=== PATIENT | female | born 1985 | race Caucasian/White ===

== ENCOUNTER → 2017-10-28 13:30 | Outpatient (CLI) | payer OTHER, SELFPAY ==
[2017-10-29 13:56] LABS: Chlamydia Trachomatis by PCR Negative (Negative); Neisserai gonorrhoeae by PCR Negative (Negative); Probe Check PASS; Sample Adequacy Control PASS; Specimen Processing Control PASS
[2017-11-01 08:05] LABS: HPV Reflexed? NOT INDICATED
== END ==
PROVIDERS: Visit Provider Obstetrics & Gynecology
DX: Z12.4 Encounter for screening for malignant neoplasm of cervix (principal); Z11.3 Encounter for screening for infections with a predominantly sexual mode of transmission
CPT/HCPCS: 87491; 87591; 88175; G0145

== ENCOUNTER → 2018-03-31 13:30 | Outpatient (CLI) | payer OTHER, SELFPAY ==
--- OUTSIDE RECORDS SUMMARY | 2018-05-27 23:01 | XMS RPT_ITS ---
:1985 Author Organization OHIP Care Team Providers Name Role Phone VASU ULRICH Admitting Unavailable VASU ULRICH Attending Unavailable VASU ULRICH Primary Care Unavailable VASU ULRICH Admitting Unavailable VASU ULRICH Attending Unavailable VASU ULRICH Primary Care Unavailable Vasu Ulrich Attending Unavailable Vasu Ulrich Referring Unavailable Vasu Ulrich Admitting Unavailable Vasu Ulrich Attending Unavailable Vasu Ulrich Referring Unavailable Vasu Ulrich Attending Unavailable Primay Care Physicia, No Primary Care Unavailable PROBLEMS PROBLEMS DATE TYPE CONDITION / CODE ATTENDING STATUS SOURCE 04/09/2018 Unknown Z36.85 - Encounter Vasu Ulrich for Community screening for Hospital Streptococcus B / Repository Z36.85(ICD-10) 11/21/2017 Unknown Z12.4 - Encounter Vasu Ulrich for screening for Community malignant neoplasm [facility] of cervix / Repository Z12.4(ICD-10) PROCEDURES PROCEDURES No Procedure Records FoundRESULTS RESULTS DISCHARGE INSTRUCTION Observed: 04/20/2018 Status: F Source: [place] 2:19 PM [facility] [place], [place] REPOSITORY [facility] Medical Records Department [address] [place] [address] Instructions for Home/Discharge Instructions 04/20/18 1417 MR#: [id number] Acct: [id number] Name: JUAN F DVELIN Rep #: [id number] : 1985 32 From: Vasu Ulrich MD PCP: Status: ADM IN Discharge Diet: No Restrictions Discharge Activity: May Shower, May Take a Tub Bath May resume sexual activity in: 4-6 weeks Additional Activity Instructions:: Nothing in the vagina for 4-6 weeks. You may return to work/school in 6 weeks. Call your doctor if you observe: Fever of 101 or Higher, Inability to urinate, Inability to have a bowel movement, Using more than one pad per hour Additional Instructions: If you experience any of the following, contact your healthcare provider. * Bleeding that soaks a pad every hour for 2 hours * Unrelieved incision or abdominal pain * Swelling, redness, discharge or bleeding from your incision or episiotomy site * Your incision begins to separate * Problems urinating (including inability to urinate or burning while urinating). * Visual changes * Severe headache * Flu-like symptoms * Pain or redness in one of both of your breasts * Pain, warmth, tenderness or swelling in your legs, especially the calf area * Frequent nausea and vomiting * Symptoms of depression or anxiety If you experience any of the following, call 911 or go to the nearest Emergency Room. * Chest pain * Problems breathing * Seizure activity * Partial or complete paralysis of a body part, slurred speech, weakness or drooping of the face, or a sudden inability to walk or hold your balance Allergies/Adverse Reactions: Allergies No Known Allergies Allergy (Verified 07/28/13 07:43) Medications to take at Discharge Vits [Prenatabs FA ] 1 tablet PO DAILY 07/28/13 Please Follow Up With: Vasu Ulrich MD - [phone] When: Call to make an appointment with your doctor in 6 weeks. Test Results: Test results from this visit will be discussed in further detail at your follow-up appointment, if applicable. 04/20/18 1419 <Electronically signed by Vasu Ulrich MD> Date Vasu Ulrich MD CC: OPERATIVE REPORT Observed: 04/20/2018 Status: F Source: NAYELI 2:17 PM [facility] [place] [place] REPOSITORY [facility] Medical Records Department [address] [place] [address] Operative Report 04/20/18 1414 MR#: [id number] Acct: [id number] Name: JUAN F DEVLIN Rep #: [id number] : 1985 32 From: Vasu Ulrich MD PCP: Status: ADM IN Location: [place] [address] Vaginal Delivery Maternal Presentation: Elective Induction Method of Induction: Pitocin, Amniotomy Amniotic Membrane Rupture Type: Artificial Amniotic Fluid Description: Clear Final GORAN: 04/26/18 Final GORAN Source: US <20 weeks Gestational age: 39 Weeks and 1 Days Date of Procedure: 04/20/18 Pre-Operative Diagnosis: IUP Post-Operative Diagnosis: IUP Surgery/ Procedure Performed: Spontaneous Vaginal Delivery Type of Anesthesia: Epidural Description of Procedure: Spontaneous vaginal delivery of a viable female infant with Apgars of 9/9 from an occiput anterior presentation with clear amniotic fluid and normal three-vessel placenta. No episiotomy or laceration. Sponge counts okay. Delivery physician: Vasu Ulrich MD. Presentation: Vertex Placental Delivery Description: Spontaneous Placenta Disposition: [facility] Cord Vessel Description: 3 Vessels Cord Entanglement: None Estimated Blood Loss: 250 cc Infant A gender: Female (1 minute): 9 (5 minute): 9 Episiotomy Description: None Laceration: None Medications given after delivery: IV Pitocin, IM [place] Complications: None 04/20/18 1417 <Electronically signed by Vasu Ulrich MD> Date Vasu Ulrich MD CC: Vasu Ulrich MD Signed CBC-COMPLETE BLOOD CNT Collected: 04/20/2018 Status: F Source: NAYELI NO DIFF 9:30 AM [facility] [place] [place] REPOSITORY TYPE CODE TESTS RESULT OUT OF RANGE REFERENCE UNITS LAB L100.1000 4.4-11.0 K/mm3 Normal WBC 10.3 LAB L100.1200 4.2-5.4 M/mm3 Low RBC 3.93 LAB L100.1300 12.0-15.0 g/dl Low HGB 11.6 LAB L100.1400 37-47 % Low HCT 34.9 LAB L100.1500 81-99 fL Normal MCV 88.8 LAB L100.1600 27.0-32.0 pg Normal MCH 29.5 LAB L100.1700 32-36 g/gl Normal MCHC 33.2 LAB L100.1810 11.6-14.6 % Normal RDW CV 13.1 LAB L100.1820 35.1-43.9 fl Normal RDW SD 41.9 LAB L100.1900 150-450 K/mm3 Normal PLT 164 LAB L100.2000 6.2-12.0 fl High MPV 12.6 Performed By: #### L100.0500 #### [facility] [address] [place], [address] TYPE AND SCREEN Collected: 04/20/2018 Status: F Source: [place] 9:30 AM [facility] [place] [place] REPOSITORY Order Comment: Reason for Type AND Screen/Red Cells: ROUTINE TYPE CODE TESTS RESULT OUT OF RANGE REFERENCE UNITS LAB B10.0800 O Normal BLOOD TYPE GEL POSITIVE LAB B100.4000 Normal Antibody NEGATIVE Screen Performed By: #### B101.7450 #### [facility] [address] [place], [address] Observed: 03/31/2018 Status: F Source: [place] CULTURE, GROUP B 1:30 PM [facility] [place] [place] STREPTOCOCCUS REPOSITORY Comments: VAGIANL/RECTAL HARI Culture Group B Beta Streptococcus is not isolated. Performed By: #### M100.1800 #### [facility] [address] [place], [address] CBC Collected: 01/27/2018 Status: F Source: HAN[place] JI 10:10 AM [facility] REPOSITORY TYPE CODE TESTS RESULT OUT OF RANGE REFERENCE UNITS LAB CBC(LOINC) CBC Result Comment: CBC-COMPLETE BLOOD COUNT LAB WBC(LOINC) 4.5 - 10.8 x 10EE3/UL WBC 9.2 LAB RBC(LOINC) 4.10 - x 10EE6/UL 5.30 RBC Low 3.78 LAB HEMOGLOBIN(LOINC 12.0 - g/dl ) 16.0 Low HEMOGLOBIN 11.4 LAB HEMATOCRIT(LOINC 34.0 - % ) 46.0 Low HEMATOCRIT 33.8 LAB MCV(LOINC) 80 - 99 fl MCV 90 LAB MCH(LOINC) 27 - 33 pg MCH 30 LAB MCHC(LOINC) 32 - 36 X10 3 MCHC 34 LAB RDW/CV(LOINC) 12.0 - % 15.6 RDW/CV 13.1 LAB PLATELET(LOINC) 150 - 450 x10EE3/UL PLATELET 161 LAB MPV(LOINC) 6.6 - 10.5 fl MPV High 10.9 Result Comment: AUTOMATED DIFFERENTIAL LAB NEUT %(LOINC) 46.0 - 76.0 % NEUT % 74.5 LAB LYMPH %(LOINC) 20.0 - 45.0 % LYMPH % Low 19.3 LAB MONOS %(LOINC) 0.0 - 10.0 % MONOS % 4.6 LAB EO %(LOINC) 0.0 - 7.0 % EO % 0.8 LAB BASO %(LOINC) 0.0 - 2.0 % BASO % 0.8 LAB Lymph #(LOINC) 0.80 - 2.80 x10EE3/U L Lymph # 1.80 LAB Neut #(LOINC) 1.50 - 7.10 x10EE3/U L Neut # 6.80 LAB [place] #(LOINC) 0.20 - 1.00 x10EE3/U L [place] # 0.40 LAB EO #(LOINC) 0.00 - 0.50 x10EE3/U L EO # 0.10 LAB Baso #(LOINC) 0.00 - 0.10 x10EE3/U L Baso # 0.10 LAB MANUAL DIFF(LOINC) MANUAL DIFF N/A LAB MORPHOLOGY(INC ) MORPHOLOGY N/A Result Comment: {CD] Performed By: #### [id number] #### [facility],[address] [place] [address] GLUCOSE CHALLENGE 50GM Collected: 01/27/2018 Status: F Source: [facility] 1 HOUR 10:10 AM [facility] REPOSITORY TYPE CODE TESTS RESULT OUT OF REFERENCE UNITS RANGE LAB GLUCOSE CHALLENGE 50GM 1 HOUR(INC) GLUCOSE CHALLENGE 50GM 1 HOUR Result Comment: GLUCOSE CHALLENGE 50 GMS 1 HOUR LAB GLUCOSE 1HR([facility]) 70 - 140 mg/dl GLUCOSE 1HR 120 Performed By: #### [id number] #### [facility],[address] [place] [address] CBC Collected: 10/28/2017 Status: F Source: [place] JI 2:30 PM [facility] REPOSITORY TYPE CODE TESTS RESULT OUT OF RANGE REFERENCE UNITS LAB CBC(LOINC) CBC Result Comment: CBC-COMPLETE BLOOD COUNT LAB WBC(LOINC) 4.5 - 10.8 x 10EE3/UL WBC 9.3 LAB RBC(LOINC) 4.10 - x 10EE6/UL 5.30 RBC 4.22 LAB HEMOGLOBIN(LOINC 12.0 - g/dl ) 16.0 HEMOGLOBIN 12.3 LAB HEMATOCRIT(LOINC 34.0 - % ) 46.0 HEMATOCRIT 36.2 LAB MCV(LOINC) 80 - 99 fl MCV 86 LAB MCH(LOINC) 27 - 33 pg MCH 29 LAB MCHC(LOINC) 32 - 36 X10 3 MCHC 34 LAB RDW/CV(LOINC) 12.0 - % 15.6 RDW/CV 14.4 LAB PLATELET(LOINC) 150 - 450 x10EE3/UL PLATELET 173 LAB MPV(LOINC) 6.6 - 10.5 fl MPV High 11.0 Result Comment: AUTOMATED DIFFERENTIAL LAB NEUT %(LOINC) 46.0 - 76.0 % NEUT % 72.4 LAB LYMPH %(LOINC) 20.0 - 45.0 % LYMPH % 21.3 LAB MONOS %(LOINC) 0.0 - 10.0 % MONOS % 4.7 LAB EO %(LOINC) 0.0 - 7.0 % EO % 1.1 LAB BASO %(LOINC) 0.0 - 2.0 % BASO % 0.5 LAB Lymph #(LOINC) 0.80 - 2.80 x10EE3/U L Lymph # 2.00 LAB Neut #(LOINC) 1.50 - 7.10 x10EE3/U L Neut # 6.70 LAB [place] #(LOINC) 0.20 - 1.00 x10EE3/U L [place] # 0.40 LAB EO #(LOINC) 0.00 - 0.50 x10EE3/U L EO # 0.10 LAB Baso #(LOINC) 0.00 - 0.10 x10EE3/U L Baso # 0.00 LAB MANUAL DIFF(LOINC) MANUAL DIFF N/A LAB MORPHOLOGY(LOINC ) MORPHOLOGY N/A Result Comment: {CD] Performed By: #### [id number] #### [place] [address] URINALYSIS Collected: 10/28/2017 Status: F Source: [facility] 2:30 PM [facility] REPOSITORY TYPE CODE TESTS RESULT OUT OF REFERENCE UNITS RANGE LAB URINALYSIS (LOINC) URINALYSIS Result Comment: URINALYSIS LAB Specimen Type(LOINC) Specimen Type Clean catch LAB Color(LOINC) NORMAL: YELLOW Color santino LAB Clarity(LOINC) NORMAL: CLEAR Clarity very cloudy LAB ph(LOINC) NORMAL: 5.0-8.0 ph 5 LAB Protein(LOINC) NORMAL: NEGATIVE Protein NEG LAB Glucose(LOINC) NORMAL: NORMAL Glucose NORM LAB Ketone(LOINC) NORMAL: NEGATIVE Ketone NEG LAB Bilirubin(LOINC) NORMAL: NEGATIVE Bilirubin NEG LAB Blood(LOINC) NORMAL: NEGATIVE Blood NEG LAB Urobilinog(LOINC) NORMAL: NORMAL Urobilinog NORM LAB Sp [place](LOINC) NORMAL: 1.010-1.030 Sp [place] 1.025 LAB Nitrite(LOINC) NORMAL: NEGATIVE Nitrite NEG LAB Leukocytes(LOINC) NORMAL: NEGATIVE Leukocytes NEG LAB Microscopic(LOINC) Microscopic SEE BELOW Result Comment: MICROSCOPIC LAB Wbc(LOINC) 0-5/hpf Wbc NONE LAB Rbc(LOINC) 0-3/hpf Rbc NONE LAB Casts(LOINC) Casts NONE LAB Crystals(LOINC) Crystals NONE LAB Amorphous(LOINC) Amorphous 3+ LAB Bacteria(LOINC) Bacteria NONE LAB Epi Cells(LOINC) Epi Cells OCC LAB Mucous(LOINC) Mucous NONE LAB Yeast(LOINC) Yeast NONE Performed By: #### [id number] #### [place] [id number] TSH Collected: 10/28/2017 Status: F Source: [facility] 2:30 PM [facility] REPOSITORY TYPE CODE TESTS RESULT OUT OF RANGE REFERENCE UNITS LAB TSH(LOINC) 0.34 - 5.60 uIU/ml TSH 1.39 Performed By: #### [id number] #### [facility],[address] [place], [place] [id number] BB TYPE & SCREEN Collected: 10/28/2017 Status: F Source: [place] JI 2:30 PM [facility] REPOSITORY TYPE CODE TESTS RESULT OUT OF REFERENCE UNITS RANGE LAB BB TYPE & SCREEN(LOIN C) BB TYPE & SCREEN Result Comment: TYPE, Rh, AND SCREEN LAB ABO(LOINC) ABO O LAB Rh(LOINC) Rh POS LAB ANTIBODY SCR(LOINC) ANTIBODY negative SCR Performed By: #### [id number] #### [facility],[address] [place], [place] [id number] RPR W/TITER AND CONF Collected: 10/28/2017 Status: F Source: HAN[place] JI REFLEX [QUEST] 2:30 PM [facility] REPOSITORY TYPE CODE TESTS RESULT OUT OF REFERENCE UNITS RANGE LAB RPR W/TITER AND CONF REFLEX [QUEST](LOINC RPR ) W/TITER AND CONF REFLEX [QUEST] Result Comment: _RPR W/TITER AND CONF REFLEX_ RPR (MONITOR) WITH REFLEX TO TITER Reported: 10/31/2017 11:51 Status=F TEST RESULT FLAG RANGE UNITS RPR SCREEN Nonreactive Nonreactive 10/31/17.1201.rfl.COMPLETE.AMRR .74765-2 RPR TITER Not indicated. 10/31/17.1202.rfl.COMPLETE.AMRR Test Performed by [facility], [facility], [address] [place] [address] Byron Blankenship M.D., Ph.D., Director of Laboratories , CLIA [id number] Performed By: #### [id number] #### [facility],[address] [place], [place] [id number] HEP B SURFACE AG Collected: 10/28/2017 Status: F Source: [place] MARGY [QUEST] 2:30 PM [facility] REPOSITORY TYPE CODE TESTS RESULT OUT OF REFERENCE UNITS RANGE LAB HEP B SURFACE AG [QUEST](LOINC ) HEP B SURFACE AG [QUEST] Result Comment: _HEP B SURFACE AG_ HEPATITIS B SURFACE ANTIGEN W/RFLX TO CONFIRM. Reported: 11/01/2017 14:19 Status=F TEST RESULT FLAG RANGE UNITS HEPATITIS B SURFACE AG Nonreactive Nonreactive 11/01/171431.rfl.COMPLETE.AMRR .5196-1 CONFIRMATION see below 11/01/171431.rfl.COMPLETE.AMRR .7905-3 Not required according to the current package insert. Test Performed by [facility], [facility], [address] [place] [address] Byron Blankenship M.D., Ph.D., Director of Laboratories , CLIA [id number] Performed By: #### [id number] #### [facility],[address] [place], [place] [id number] HEP C VIRUS AB WITH Collected: 10/28/2017 Status: F Source: [facility] REFLEX [QUEST] 2:30 PM [facility] REPOSITORY TYPE CODE TESTS RESULT OUT OF REFERENCE UNITS RANGE LAB HEP C VIRUS AB WITH REFLEX [QUEST](LOINC HEP C ) VIRUS AB WITH REFLEX [QUEST] Result Comment: _HEP C VIRUS AB_ HEPATITIS C AB W/REFL HCV RNA, QN REAL-TIME PCR Reported: 11/01/2017 14:19 Status=F TEST RESULT FLAG RANGE UNITS HEPATITIS C ANTIBODY Nonreactive Nonreactive 11/01/17.1430.rfl.COMPLETE.AMRR .91711-2 SIGNAL TO CUTOFF 0.02 <1.00 ratio 11/01/17.rfl.COMPLETE.AMRR .07322-0 ADDITIONAL TESTING Not indicated 11/01/17.1430.rfl.COMPLETE.AMRR Test Performed by [facility], [facility], [address] [place] [address] Byron Blankenship M.D., Ph.D., Director of Laboratories , [facility] [id number] Performed By: #### [id number] #### [facility],[address] [place] [address] RUBELLA IMMUNE Collected: 10/28/2017 Status: F Source: [place]AN[place] STATUS [QUEST] 2:30 PM [facility] REPOSITORY TYPE CODE TESTS RESULT OUT OF REFERENCE UNITS RANGE LAB RUBELLA IMMUNE STATUS [QUEST](LOINC ) RUBELLA IMMUNE STATUS [QUEST] Result Comment: _RUBELLA IMMUNE STATUS_ RUBELLA ANTIBODY (IGG) Reported: 11/03/2017 13:55 Status=F TEST RESULT FLAG RANGE UNITS RUBELLA ANTIBODY (IGG) 2.89 >=1.00 Index 11/03/17.1406.rfl.COMPLETE.AMRR .5334-8 INDEX INTERPRETATION < 0.90 Not consistent with Immunity 0.90 - 0.99 Equivocal > or = 1.00 Consistent with Immunity The presence of Rubella IgG antibody suggests immunization or past or current infection with Rubella virus. Test Performed by [facility], [facility], [address] [place] [address] Byron Blankenship M.D., Ph.D., Director of Laboratories , [facility] [id number] Performed By: #### [id number] #### [facility],[address] [address] [address] CT/NG WCH BY PCR Collected: 10/28/2017 Status: F Source: [place] 1:30 PM [facility] [place] [place] REPOSITORY TYPE CODE TESTS RESULT OUT OF RANGE REFERENCE UNITS LAB L8200.2100 Negative Normal Chlam Negative Trac PCR LAB L8200.2200 Negative Normal NG by Negative PCR Performed By: #### L8200.1999 #### [facility] [address] [place], [place] [address], [place], [address] PAP IG W/REFLEX HR Collected: 10/28/2017 Status: F Source: [place] HPV APTIMA 1:30 PM [facility] [place] [place] REPOSITORY Order Comment: CYTOLOGY INFORMATION: - CLINICAL INFORMATION: - DATE LMP/MENOPAUSE: LMP/ NOT GIVEN - COLLECTION VIAL: Thin Prep Vial - DRIVERS LICENSE EXAMINER SOURCE: CERVICAL/ENDOCERVICAL - COLLECTION TECHNIQUE: BRUSH/SPATULA Specimen Comment: [id number] Specimen Comment: No. of containers..01 ThinPrep Vial TYPE CODE TESTS RESULT OUT OF RANGE REFERENCE UNITS LAB L7400.0800 . Normal DIAGN Comment Result Comment: NEGATIVE FOR INTRAEPITHELIAL LESION AND MALIGNANCY. LAB L7400.0900 . Normal ADEQ Comment Result Comment: Satisfactory for evaluation. Endocervical and/or squamous metaplastic cells (endocervical component) are present. LAB L7400.1400 . Normal PERFORM Comment Result Comment: Priscila Kay, Customer Service Consultant (ASCP) LAB L7400.2575 . Normal TEST METHOD Comment Result Comment: This liquid based ThinPrep(R) pap test was screened with the use of an image guided system. LAB L7400.2600 . Normal . COMM LAB L7400.2700 . Normal PAPSMR Comment Result Comment: The Pap smear is a screening test designed to aid in the detection of premalignant and malignant conditions of the uterine cervix. It is not a diagnostic procedure and should not be used as the sole means of detecting cervical cancer. Both false-positive and false-negative reports do occur. LAB L7400.2800 . Normal HPV RFLX Comment Result Comment: The HPV DNA reflex criteria were not met with this specimen result therefore, no HPV testing was performed. Performed at: [facility] [id number] [place] Operator: Keya Still MD, Phone: [phone] Performed By: #### L7400.0357 #### [facility] (refer to report for specific site) refer to report for address and phone number ALLERGIES ALLERGIES DATE TYPE / CODE NAME / CODE REACTION SEVERITY SOURCE 07/28/2013 Drug No Known Unknown Nayeli [facility] Allergy/4160 Allergies/F00 Hospital 53584(SNOMED [id number](RXNOR Repository CT) M) ENCOUNTERS ENCOUNTERS ADMIT/DISCHARGE ACCOUNT ADMITTING ENCOUNTER LOCATION SOURCE NUMBER CLASS 04/20/2018 [id number] Vasu Ulrich Inpatient [place] 6 Encounter [facility] ing:WPRoom: Repository EQ531Ffb: 1 03/31/2018 [id number] Ambulatory [place] 6 [facility] ing:LABSPEC Repository 01/27/2018/ [id number] VASU ULRICH [address] Repository 10/28/2017/ [id number] VASU ULRICH [address] Repository 10/28/2017 [id number] Ambulatory Nayeli [place] 4 [facility] ing:LABSPEC Repository PAYERS PAYERS ENCOUNTER GUARANTOR PAYER SUBSCRIBER SOURCE 04/20/2018 JUAN F [id number] Primary Insurance:[facility] JUAN F RABERDOB: [place] [id number], Number: [facility] [id number]: [id number] Repository Date:2017-10-31 (HP) 04/20/2018 Secondary NOT GIVENUNK Nayeli Insurance:SELF PAY [facility] Number: Effective Repository Date:2017-10-31 03/31/2018 JUAN F [id number] Primary JUAN F RABERDOB: [place] TR Insurance:[facility] [id number] [address]Fta: GROUPPolicy Number: Repository [id number] (HP) Date: [address] [address]BO: 03/31/2018 Secondary NOT GIVENUNK [place] Insurance:SELF PAY [facility] Number: Effective Repository Date:2018-03-31 10/28/2017 JUAN F [id number] Primary JUAN F RABERDOB: [place] TR Insurance:[facility] [id number] [address]Zks: GROUPPolicy Number: Repository [id number] (HP) Date: [address], [place] [address]PE: 10/28/2017 Secondary NOT GIVENUNK Nayeli Insurance:SELF PAY [facility] Effective Repository Date:2017-10-28
== END ==
PROVIDERS: Visit Provider Obstetrics & Gynecology
DX: Z36.85 Encounter for antenatal screening for Streptococcus B (principal)
CPT/HCPCS: 87081

== ENCOUNTER 2018-04-20 09:15 | Inpatient (IN) | payer SELFPAY ==
[2018-04-20] MEDS: Lactated Ringers 1,000 ML 50 ML IV ×2 (09:30→12:55)
[2018-04-20 09:35] VITALS: BMI 30.7
[2018-04-20 09:51] LABS: Hematocrit 34.9 % (37-47); Hemoglobin 11.6 g/dl (12.0-15.0); Mean Corp Hgb Conc 33.2 g/gl (32-36); Mean Corpuscular Hgb 29.5 pg (27.0-32.0); Mean Corpuscular Volume 88.8 fL (81-99); Mean Platelet Vol. 12.6 fl (6.2-12.0); Platelet Count 164 K/mm3 (150-450); RBC Distribution Width CV 13.1 % (11.6-14.6); RBC Distribution Width SD 41.9 fl (35.1-43.9); Red Blood Count 3.93 M/mm3 (4.2-5.4); White Blood Count 10.3 K/mm3 (4.4-11.0)
[2018-04-20 09:55] LABS: Scan Indicated on CBC? Y/N NO
[2018-04-20] MEDS: Oxytocin 30 units/NS 500 ml 30 UNITS/500 ML IV.SOLN IV (10:30)
[2018-04-20] MEDS: fentaNYL-bupivacaine (epidural) 100 ML BAG EPIDURAL (13:25)
[2018-04-20] MEDS: Oxytocin 30 units/NS 500 ml 30 UNITS/500 ML IV.SOLN 334 UNITS IV (14:03)
--- NOTE | 2018-04-20 14:14 | PCM.OB.VAG ---
Vaginal Delivery Maternal Presentation: Elective Induction Method of Induction: Pitocin, Amniotomy Amniotic Membrane Rupture Type: Artificial Amniotic Fluid Description: Clear Final GORAN: 04/26/18 Final GORAN Source: US <20 weeks Gestational age: 39 Weeks and 1 Days Date of Procedure: 04/20/18 Pre-Operative Diagnosis: IUP Post-Operative Diagnosis: IUP Surgery/ Procedure Performed: Spontaneous Vaginal Delivery Type of Anesthesia: Epidural Description of Procedure: Spontaneous vaginal delivery of a viable female infant with Apgars of 9/9 from an occiput anterior presentation with clear amniotic fluid and normal three-vessel placenta. No episiotomy or laceration. Sponge counts okay. Delivery physician: Myron Herr MD. Presentation: Vertex Placental Delivery Description: Spontaneous Placenta Disposition: [facility] Cord Vessel Description: 3 Vessels Cord Entanglement: None Estimated Blood Loss: 250 cc A gender: Female (1 minute): 9 (5 minute): 9 Episiotomy Description: None Laceration: None Medications given after delivery: IV Pitocin, IM Methergin Complications: None
--- NOTE | 2018-04-20 14:17 | OP.PCM_ITS ---
Vaginal Delivery Maternal Presentation: Elective Induction Method of Induction: Pitocin, Amniotomy Amniotic Membrane Rupture Type: Artificial Amniotic Fluid Description: Clear Final GORAN: 04/26/18 Final GORAN Source: US <20 weeks Gestational age: 39 Weeks and 1 Days Date of Procedure: 04/20/18 Pre-Operative Diagnosis: IUP Post-Operative Diagnosis: IUP Surgery/ Procedure Performed: Spontaneous Vaginal Delivery Type of Anesthesia: Epidural Description of Procedure: Spontaneous vaginal delivery of a viable female infant with Apgars of 9/9 from an occiput anterior presentation with clear amniotic fluid and normal three- vessel placenta. No episiotomy or laceration. Sponge counts okay. Delivery physician: Myron Herr MD. Presentation: Vertex Placental Delivery Description: Spontaneous Placenta Disposition: [facility] Cord Vessel Description: 3 Vessels Cord Entanglement: None Estimated Blood Loss: 250 cc Infant A gender: Female (1 minute): 9 (5 minute): 9 Episiotomy Description: None Laceration: None Medications given after delivery: IV Pitocin, IM Methergin Complications: None
--- NOTE | 2018-04-20 14:17 | PCM.DCVAG ---
Discharge Diet: No Restrictions Discharge Activity: May Shower, May Take a Tub Bath May resume sexual activity in: 4-6 weeks Additional Activity Instructions:: Nothing in the vagina for 4-6 weeks. You may return to work/school in 6 weeks. Call your doctor if you observe: Fever of 101 or Higher, Inability to urinate, Inability to have a bowel movement, Using more than one pad per hour Additional Instructions: If you experience any of the following, contact your healthcare provider. Bleeding that soaks a pad every hour for 2 hours Unrelieved incision or abdominal pain Swelling, redness, discharge or bleeding from your incision or episiotomy site Your incision begins to separate Problems urinating (including inability to urinate or burning while urinating). Visual changes Severe headache Flu-like symptoms Pain or redness in one of both of your breasts Pain, warmth, tenderness or swelling in your legs, especially the calf area Frequent nausea and vomiting Symptoms of depression or anxiety If you experience any of the following, call 911 or go to the nearest Emergency Room. Chest pain Problems breathing Seizure activity Partial or complete paralysis of a body part, slurred speech, weakness or drooping of the face, or a sudden inability to walk or hold your balance Allergies/Adverse Reactions: Allergies No Known Allergies Allergy (Verified 07/28/13 07:43) Medications to take at Discharge Vits [Prenatabs FA ] 1 tablet PO DAILY 07/28/13 Please Follow Up With: Myron Herr MD - [phone] When: Call to make an appointment with your doctor in 6 weeks. Test Results: Test results from this visit will be discussed in further detail at your follow-up appointment, if applicable.
--- NOTE | 2018-04-20 14:19 | DCINST_ITS ---
Discharge Diet: No Restrictions Discharge Activity: May Shower, May Take a Tub Bath May resume sexual activity in: 4-6 weeks Additional Activity Instructions:: Nothing in the vagina for 4-6 weeks. You may return to work/school in 6 weeks. Call your doctor if you observe: Fever of 101 or Higher, Inability to urinate, Inability to have a bowel movement, Using more than one pad per hour Additional Instructions: If you experience any of the following, contact your healthcare provider. * Bleeding that soaks a pad every hour for 2 hours * Unrelieved incision or abdominal pain * Swelling, redness, discharge or bleeding from your incision or episiotomy site * Your incision begins to separate * Problems urinating (including inability to urinate or burning while urinating). * Visual changes * Severe headache * Flu-like symptoms * Pain or redness in one of both of your breasts * Pain, warmth, tenderness or swelling in your legs, especially the calf area * Frequent nausea and vomiting * Symptoms of depression or anxiety If you experience any of the following, call 911 or go to the nearest Emergency Room. * Chest pain * Problems breathing * Seizure activity * Partial or complete paralysis of a body part, slurred speech, weakness or drooping of the face, or a sudden inability to walk or hold your balance Allergies/Adverse Reactions: Allergies No Known Allergies Allergy (Verified 07/28/13 07:43) Medications to take at Discharge Vits [Prenatabs FA ] 1 tablet PO DAILY 07/28/13 Please Follow Up With: Myron Herr MD - [phone] When: Call to make an appointment with your doctor in 6 weeks. Test Results: Test results from this visit will be discussed in further detail at your follow- up appointment, if applicable.
[2018-04-20] MEDS: Oxytocin 30 units/NS 500 ml 30 UNITS/500 ML IV.SOLN 167 UNITS IV (14:33)
[2018-04-20 20:20] VITALS: PULSE 74; RESP 19; TEMP 36.6; O2SAT 96
[2018-04-20 21:22] VITALS: BP 111/69
[2018-04-21 00:29] VITALS: BP 108/57; PULSE 70; RESP 16; TEMP 36.7; O2SAT 97
[2018-04-21 04:15] VITALS: BP 106/66; PULSE 65; RESP 16; TEMP 37; O2SAT 100
[2018-04-21 07:50] VITALS: BP 110/66; PULSE 60; RESP 16; TEMP 36.3; O2SAT 100
--- NOTE | 2018-04-21 08:43 | PCM.PN.OB ---
Subjective: Patient without complaints. Breast-feeding going well. Wants to go home later today if the baby is able to go. Claims minimal vaginal bleeding. - Physical Exam Vital Signs Temp Pulse Resp BP Pulse Ox 98.6 F 65 16 106/66 100 04/21/18 04:15 04/21/18 04:15 04/21/18 04:15 04/21/18 04:15 04/21/18 04:15 Oxygen Delivery Method Room Air Weight: 196 lb Body Mass Index (BMI) 30.7 Intake and Output for Last 24 Hours 04/19/18 04/20/18 04/21/18 23:59 23:59 23:59 Output Total 1100 / 1100 Balance -1100 / -1100 Laboratory Tests Past 24 Hrs 04/20/18 04/20/18 09:30 09:30 WBC 10.3 RBC 3.93 L Hgb 11.6 L Hct 34.9 L MCV 88.8 MCH 29.5 MCHC 33.2 RDW 13.1 RDW Differential 41.9 Plt Count 164 MPV 12.6 H Blood Type O POSITIVE Antibody Screen NEGATIVE Medical Necessity - Tobacco Use Smoking Status: Never smoker Assessment/Plan Doing well day #1. Will discharge to home if baby is able to go. Home-going instructions given.
[2018-04-21 12:15] VITALS: BP 117/72; PULSE 71; RESP 16; TEMP 36.6; O2SAT 97
[2018-04-21] MEDS: Senna/Docusate Sodium 1 Tablet PO (12:38)
[2018-04-21 15:50] VITALS: BP 122/64; PULSE 62; RESP 14; TEMP 36.8; O2SAT 99
[2018-04-21 20:15] VITALS: BP 115/69; PULSE 72; RESP 16; TEMP 36.8; O2SAT 100
[2018-04-22 02:00] VITALS: BP 107/59; PULSE 61; RESP 16; TEMP 36.8; O2SAT 100
[2018-04-22] MEDS: Ibuprofen 600 MG Tablet PO (08:13)
[2018-04-22 08:17] VITALS: BP 107/62; PULSE 72; RESP 16; TEMP 36.7; O2SAT 98
--- NOTE | 2018-04-22 09:04 | PCM.PN.OB ---
Subjective: Patient without complaints. Stated yesterday because baby's bilirubin was slightly elevated. Apparently okay today. She is ready for discharge home. - Physical Exam Vital Signs Temp Pulse Resp BP Pulse Ox 98.1 F 72 16 107/62 98 04/22/18 08:17 04/22/18 08:17 04/22/18 08:17 04/22/18 08:17 04/22/18 08:17 Oxygen Delivery Method Room Air Weight: 196 lb Body Mass Index (BMI) 30.7 Intake and Output for Last 24 Hours 04/20/18 04/21/18 04/22/18 23:59 23:59 23:59 Output Total 1100 / 1100 Balance -1100 / -1100 Medical Necessity - Tobacco Use Smoking Status: Never smoker Assessment/Plan Doing well day #2. Release to home with routine instructions.
[2018-04-22 09:05] VITALS: BP 107/62; PULSE 72; RESP 16; TEMP 36.8; O2SAT 98
[2018-04-22] MEDS: Senna/Docusate Sodium 1 Tablet PO (09:31)
--- OUTSIDE RECORDS SUMMARY | 2018-07-22 21:29 | XMS RPT_ITS ---
:1985 Author Organization OHIP Care Team Providers Name Role Phone VASU ULRICH Admitting Unavailable VASU ULRICH Attending Unavailable VASU ULRICH Primary Care Unavailable VASU ULRICH Admitting Unavailable VASU ULRICH Attending Unavailable VASU ULRICH Primary Care Unavailable Vasu Ulrich Admitting Unavailable Vasu Ulrich Attending Unavailable Vasu Ulrich Referring Unavailable Vasu Ulrich Attending Unavailable Primay Care Physicia, No Primary Care Unavailable Vasu Ulrich Admitting Unavailable Vasu Ulrich Attending Unavailable Primay Care Physicia, No Primary Care Unavailable Vasu Ulrich Attending Unavailable Vasu Ulrich Referring Unavailable PROBLEMS PROBLEMS DATE TYPE CONDITION / CODE ATTENDING STATUS SOURCE 04/09/2018 Unknown Z36.85 - Encounter Vasu Ulrich for Community screening for Hospital Streptococcus B / Repository Z36.85(ICD-10) 11/21/2017 Unknown Z12.4 - Encounter Vasu Ulrich for screening for Community malignant neoplasm Hospital of cervix / Repository Z12.4(ICD-10) PROCEDURES PROCEDURES No Procedure Records FoundRESULTS RESULTS DISCHARGE INSTRUCTION Observed: 04/20/2018 Status: F Source: [place] 2:[address] [facility] REPOSITORY [facility] Medical Records Department [address] [place] [address] Instructions for Home/Discharge Instructions 04/20/181416 MR#: [id number] Acct: [id number] Name: JUAN F DEVLIN Rep #: [id number] : 1985 32 From: Vasu Ulrich MD [...] DAILY 07/28/13 Please Follow Up With: Vasu Ulrcih MD - [phone] When: Call to make an appointment with your doctor in 6 weeks. Test Results: Test results from this visit will be discussed in further detail at your follow-up appointment, if applicable. 04/20/18 1419 <Electronically signed by Vasu Ulrich MD> Date Vasu Ulrich MD CC: OPERATIVE REPORT Observed: 04/20/2018 Status: F Source: [place] 2:17 PM [facility] REPOSITORY [facility] Medical Records Department [address] [place] [address] Operative Report 04/20/18 1414 MR#: [id number] Acct: [id number] Name: JUAN F DEVLIN Rep #: [id number] : 1985 32 From: Vasu Ulrich MD PCP: Status: [facility] Maternal Presentation: Elective Induction Method [...] Entanglement: None Estimated Blood Loss: 250 cc A gender: Female (1 minute): 9 (5 minute): 9 Episiotomy Description: None Laceration: None Medications given after delivery: IV Pitocin, IM Methergin Complications: None 04/20/18 1417 <Electronically signed by Vasu Ulrich MD> Date Vasu Ulrich MD CC: Vasu Ulrich MD Signed CBC-COMPLETE BLOOD CNT Collected: 04/20/2018 Status: F Source: [place] NO DIFF 9:[address] [facility] REPOSITORY TYPE CODE TESTS RESULT [...] MPV 12.6 Performed By: #### L100.0500 #### [facility] [address] [place], [address] TYPE AND SCREEN Collected: 04/20/2018 Status: F Source: MYRIAM 9:[address] [facility] REPOSITORY Order Comment: Reason for Type AND Screen/Red Cells: ROUTINE TYPE CODE TESTS RESULT OUT OF RANGE REFERENCE UNITS LAB B10.0800 O Normal BLOOD TYPE GEL POSITIVE LAB B100.4000 Normal Antibody NEGATIVE Screen Performed By: #### B101.7450 #### [facility] [address] [place], [address] Observed: 03/31/2018 Status: F Source: MYRIAM CULTURE, GROUP B 1:[address] [facility] STREPTOCOCCUS REPOSITORY Comments: VAGIANL/RECTAL HARI Culture Group B Beta Streptococcus is not isolated. Performed By: #### M100.1800 #### [facility] [address] [place], [address] CBC Collected: 01/27/2018 Status: F Source: HANNAH JI 10:10 AM [facility] REPOSITORY TYPE CODE TESTS RESULT OUT OF [...] 7.10 x10EE3/U L Neut # 6.80 LAB Scurry #(LOINC) 0.20 - 1.00 x10EE3/U L Scurry # 0.40 LAB EO #(LOINC) 0.00 - 0.50 x10EE3/U L EO # 0.10 LAB Baso #(LOINC) 0.00 - 0.10 x10EE3/U L Baso # 0.10 LAB MANUAL DIFF(LOINC) MANUAL DIFF N/A LAB MORPHOLOGY(LOINC ) MORPHOLOGY N/A Result Comment: {CD] Performed By: #### [id number] #### [facility],[address] [place] [address] GLUCOSE CHALLENGE 50GM Collected: 01/27/2018 Status: F Source: HANNAH JI 1 HOUR 10:10 AM [facility] REPOSITORY TYPE CODE TESTS RESULT OUT OF REFERENCE UNITS RANGE LAB GLUCOSE CHALLENGE 50GM 1 HOUR(LOINC) GLUCOSE CHALLENGE 50GM 1 HOUR Result Comment: GLUCOSE CHALLENGE 50 GMS 1 HOUR LAB GLUCOSE 1HR(LOINC) 70 - 140 mg/dl GLUCOSE 1HR 120 Performed By: #### [id number] #### [facility],[address] [place] [address] CBC Collected: 10/28/2017 Status: F Source: HANNHA JI 2:30 PM [facility] REPOSITORY TYPE CODE TESTS RESULT OUT OF RANGE REFERENCE UNITS LAB CBC(INC) CBC Result Comment: CBC-COMPLETE BLOOD COUNT LAB [...] 7.10 x10EE3/U L Neut # 6.70 LAB Scurry #(LOINC) 0.20 - 1.00 x10EE3/U L Scurry # 0.40 LAB EO #(LOINC) 0.00 - 0.50 x10EE3/U L EO # 0.10 LAB Baso #(LOINC) 0.00 - 0.10 x10EE3/U L Baso # 0.00 LAB MANUAL DIFF(LOINC) MANUAL DIFF N/A LAB MORPHOLOGY(LOINC ) MORPHOLOGY N/A Result Comment: {CD] Performed By: #### [id number] #### [place] [address] URINALYSIS Collected: 10/28/2017 Status: F Source: [facility] 2:30 PM [facility] REPOSITORY TYPE CODE TESTS RESULT OUT OF [...] Urobilinog(LOINC) NORMAL: NORMAL Urobilinog NORM LAB Sp [place](LOINC) NORMAL: 1.010-1.030 Sp [place] 1.025 LAB Nitrite(LOINC) NORMAL: NEGATIVE Nitrite NEG [...] LAB Yeast(LOINC) Yeast NONE Performed By: #### [id number] #### [facility],[address] [place] [address] TSH Collected: 10/28/2017 Status: F Source: HANNAH JI 2:30 PM [facility] REPOSITORY TYPE CODE TESTS RESULT OUT OF RANGE REFERENCE UNITS LAB TSH(LOINC) 0.34 - 5.60 uIU/ml TSH 1.39 Performed By: #### [id number] #### [facility],[address] [place], [place] [id number] BB TYPE & SCREEN Collected: 10/28/2017 Status: F Source: [place] 2:30 PM [facility] REPOSITORY TYPE CODE TESTS RESULT OUT OF REFERENCE UNITS RANGE LAB BB TYPE & SCREEN(LOIN C) BB TYPE & SCREEN Result Comment: TYPE, Rh, AND SCREEN LAB ABO(LOINC) ABO O LAB Rh(LOINC) Rh POS LAB ANTIBODY SCR(LOINC) ANTIBODY negative SCR Performed By: #### [id number] #### [facility],[address] [place] [address] RPR W/TITER AND CONF Collected: 10/28/2017 Status: F Source: [place]AN[place] JI REFLEX [QUEST] 2:30 PM [facility] REPOSITORY TYPE CODE TESTS RESULT OUT OF REFERENCE UNITS RANGE LAB RPR W/TITER AND CONF REFLEX [QUEST](LOINC RPR ) W/TITER AND CONF REFLEX [QUEST] Result Comment: _RPR W/TITER AND CONF REFLEX_ RPR (MONITOR) WITH REFLEX TO TITER Reported: 10/31/2017 11:51 Status=F TEST RESULT FLAG RANGE UNITS RPR SCREEN Nonreactive Nonreactive 10/31/17.1202.rfl.COMPLETE.AMRR .22105-7 RPR TITER Not indicated. 10/31/17.1202.rfl.COMPLETE.AMRR Test Performed by [employer], [address] [place] [address] Byron Blankenship M.D., Ph.D., Director of Laboratories , CLIA [id number] Performed By: #### [id number] #### [facility],[address] [place] [address] HEP B SURFACE AG Collected: 10/28/2017 Status: F Source: [facility] [QUEST] 2:30 PM [facility] REPOSITORY TYPE CODE TESTS RESULT OUT OF REFERENCE UNITS RANGE LAB HEP B SURFACE AG [QUEST](LOINC ) HEP B SURFACE AG [QUEST] Result Comment: _HEP B SURFACE AG_ HEPATITIS B SURFACE ANTIGEN W/RFLX TO CONFIRM. Reported: 11/01/2017 14:19 Status=F TEST RESULT FLAG RANGE UNITS HEPATITIS B SURFACE AG Nonreactive Nonreactive 11/01/17.143.rfl.COMPLETE.AMRR .5196-1 CONFIRMATION see below 11/01/17143.rfl.COMPLETE.AMRR .7905-3 Not required according to the current package insert. Test Performed by [employer], [address] [place], [place] Byron Blankenship M.D., Ph.D., Director of Laboratories , CLIA [id number] Performed By: #### [id number] #### [facility],[address] [facility] [address] HEP C VIRUS AB WITH Collected: 10/28/2017 Status: F Source: [facility] REFLEX [QUEST] 2:30 PM [facility] REPOSITORY TYPE CODE TESTS RESULT OUT OF REFERENCE UNITS RANGE LAB HEP C VIRUS AB WITH REFLEX [QUEST](LOINC HEP C ) VIRUS AB WITH REFLEX [QUEST] Result Comment: _HEP C VIRUS AB_ HEPATITIS C AB W/REFL HCV RNA, QN REAL-TIME PCR Reported: 11/01/2017 14:19 Status=F TEST RESULT FLAG RANGE UNITS HEPATITIS C ANTIBODY Nonreactive Nonreactive 11/01/17.1430.rfl.COMPLETE.AMRR .98575-5 SIGNAL TO CUTOFF 0.02 <1.00 ratio 11/01/17.rfl.COMPLETE.AMRR .27555-2 ADDITIONAL TESTING Not indicated 11/01/17.rfl.COMPLETE.AMRR Test Performed by [employer], [place] [employer] [facility], [address] [place] [address] Byron Blankenship M.D., Ph.D., Director of Laboratories , CLIA [id number] Performed By: #### [id number] #### [facility],[address] [facility] [address] RUBELLA IMMUNE Collected: 10/28/2017 Status: F Source: [facility] STATUS [QUEST] 2:30 PM [facility] REPOSITORY TYPE CODE TESTS RESULT OUT OF [...] infection with Rubella virus. Test Performed by [place] [employer], [place] [employer] [facility], [address] [place] [address] Byron Blankenship M.D., Ph.D., Director of Laboratories , [facility] [id number] Performed By: #### [id number] #### [facility],[address] [place] [address] CT/NG WCH BY PCR Collected: 10/28/2017 Status: F Source: [place] 1:[address] [facility] REPOSITORY TYPE CODE TESTS RESULT OUT OF RANGE REFERENCE UNITS LAB L8200.2100 Negative Normal Chlam Negative Trac PCR LAB L8200.2200 Negative Normal NG by Negative PCR Performed By: #### L8200.1999 #### [facility] [address] [place], [address] PAP IG W/REFLEX HR Collected: 10/28/2017 Status: F Source: [place] HPV APTIMA 1:[address] [facility] REPOSITORY Order Comment: CYTOLOGY INFORMATION: - CLINICAL INFORMATION: - DATE LMP/MENOPAUSE: LMP/ NOT GIVEN - COLLECTION VIAL: Thin Prep Vial - DOCUMENT CONTROLLER SOURCE: CERVICAL/ENDOCERVICAL - COLLECTION TECHNIQUE: BRUSH/SPATULA Specimen Comment: [id number] Specimen Comment: No. of containers..01 ThinPrep Vial TYPE CODE TESTS RESULT OUT OF RANGE REFERENCE UNITS LAB L7400.0800 . Normal DIAGN Comment Result Comment: NEGATIVE FOR INTRAEPITHELIAL LESION AND MALIGNANCY. LAB L7400.0900 . Normal ADEQ Comment Result Comment: Satisfactory for evaluation. Endocervical and/or squamous metaplastic cells (endocervical component) are present. LAB L7400.1400 . Normal PERFORM Comment Result Comment: Priscila Kay, Rail Transportation Tabeler (ASCP) LAB L7400.2575 . Normal TEST METHOD [...] no HPV testing was performed. Performed at: [facility] [place] [id number] Weave Defect Charting Clerk: Keya Still MD, Phone: [phone] Performed By: #### L7400.0357 #### [facility] (refer to report for specific site) refer to report for address and phone number ALLERGIES ALLERGIES DATE TYPE / CODE NAME / CODE REACTION SEVERITY SOURCE 07/28/2013 Drug No Known Unknown [facility] Allergy/4160 Allergies/F00 Hospital 36208(SNOMED 2837110(RXNOR Repository CT) M) ENCOUNTERS ENCOUNTERS ADMIT/DISCHARGE ACCOUNT ADMITTING ENCOUNTER LOCATION SOURCE NUMBER CLASS 04/26/2018 [id number] Vasu Ulrich [facility] [place] [facility] ing:WP Repository 04/20/2018/ [id number] Vasu Ulrich [facility]patient [place] 8 6 Encounter [facility] ing:WPRoom: Repository [id number]: 1 03/31/2018 [id number] [facility] [place] 6 [facility] ing:LABSPEC Repository 01/27/2018/ [id number] VASU ULRICH [address] Repository 10/28/2017/ [id number] MOJGAN VASU [address] Repository 10/28/2017 [id number] [facility] [place] 4 [facility] ing:LABSPEC Repository PAYERS PAYERS ENCOUNTER GUARANTOR PAYER SUBSCRIBER SOURCE 04/26/2018 JUAN F [id number] Primary JUAN F RABERDOB: [place] TR Insurance:[facility] [id number] [address]Bhf[facility]: Repository [id number] (HP) Date: [address] [address]EM: 04/26/2018 Secondary NOT GIVENUNK [place] Insurance:SELF PAY [facility] Number: Effective Repository Date:2018-03-02 04/20/2018 JUAN F [id number] Primary Insurance:[facility] JUAN F RABERDOB: [place] TR PACKAGE PLANPoly [id number], Number: [facility] [address]Bne: [id number] Repository Date:2017-10-31 () 04/20/2018 Secondary NOT GIVENUNK [place] Insurance:SELF PAY [facility] Number: Effective Repository Date:2017-10-31 03/31/2018 JUAN F [id number] Primary JUAN F RABERDOB: [place] TR Insurance:[facility] [id number] [address]Mse: GROUPPolicy Number: Repository [id number] (HP) Date: [address] [place] [address]EZ: 03/31/2018 Secondary NOT GIVENUNK [place] Insurance:SELF PAY [facility] Number: Effective Repository Date:2018-03-31 10/28/2017 JUAN F [id number] Primary JUAN F RABERDOB: [place]riam TR Insurance:[facility] [id number] [address]Bwn: GROUPPolicy Number: Repository [id number] (HP) Date: [address] [address]PW: 10/28/2017 Secondary NOT GIVENUNK [place] Insurance:SELF PAY [facility] Number: Effective Repository Date:2017-10-28
== END 2018-04-22 10:00 | disposition home or self-care (01) | DRG 807 ==
PROVIDERS: Admitting Provider Obstetrics & Gynecology; Referring Provider Obstetrics & Gynecology; Visit Provider Obstetrics & Gynecology
DX: O80 Encounter for full-term uncomplicated delivery (principal); Z3A.39 39 weeks gestation of pregnancy; Z37.0 Single live birth
CPT/HCPCS: 59025; 59050; 85027; 86850; 86900; 99218; J7120; G0378

== ENCOUNTER → 2022-07-30 | Outpatient (CLI) | payer OTHER, SELFPAY ==
[2022-07-30 15:44] LABS: Absolute Lymphocyte Count 1.98 X10^3/uL (0.83-4.51); Absolute Neutrophil Count 5.4 X10^3/uL (2.0-7.7); Basophil# 0.04 X10^3/uL; Basophil% 0.5 % (0-1); Eosinophil# 0.08 X10^3/uL; Hematocrit 36.3 % (37-47); Hemoglobin 11.8 g/dL (12.0-15.0); Lymphocyte # 1.98 X10^3/ul (0.83-4.51); Lymphocyte % 25.2 % (19-41); Mean Corp Hgb Conc 32.5 g/dL (32-36); Mean Corpuscular Hgb 27.4 pg (27.0-32.0); Mean Corpuscular Volume 84.4 fL (81-99); Mean Platelet Vol. 11.8 fl (6.2-12.0); Monocyte# 0.37 X10^3/uL; Monocyte% 4.7 % (0-10); NRBC Flagged by Analyzer 0 % (0-5); Neutrophil # 5.35 X10^3/uL (2.7-7.7); Neutrophil % 68.2 % (47-70); Platelet Count 171 K/mm3 (150-450); RBC Distribution Width CV 15.9 % (11.6-14.6); RBC Distribution Width SD 48.8 fl (35.1-43.9); White Blood Count 7.9 K/mm3 (4.4-11.0)
[2022-07-30 17:10] LABS: HIV - WCH Non-Reactive (Nonreactive); Hepatitis B Surface Antigen Non-Reactive (Nonreactive); Hepatitis C Antibody Non-Reactive (Nonreactive); Rubella IgG Reactive (Nonreactive); Syphilis Antibodies Non-reactive
[2022-08-01 09:30] LABS: V-Zoster IgG (Immunity) 922 index (Immune >165)
[2022-08-06 11:16] LABS: HPV APTIMA, High Risk Negative (Negative)
== END | disposition home or self-care (01) ==
LOC: WOBLAB 15:25
PROVIDERS: Visit Provider Student in an Organized Health Care Education/Training Program
DX: Z34.81 Encounter for supervision of other normal pregnancy, first trimester (principal)
CPT/HCPCS: 36415; 85025; 86703; 86762; 86780; 86787; 86803; 87086; 87088; 87340; 87624; 88175; G0145

== ENCOUNTER → 2022-11-19 | Outpatient (CLI) | payer OTHER, SELFPAY ==
[2022-11-19 10:48] LABS: Absolute Lymphocyte Count 1.57 X10^3/uL (0.83-4.51); Absolute Neutrophil Count 7.2 X10^3/uL (2.0-7.7); Basophil# 0.05 X10^3/uL; Basophil% 0.5 % (0-1); Eosinophil# 0.07 X10^3/uL; Eosinophils% 0.7 % (0-5); Hematocrit 36.4 % (37-47); Hemoglobin 11.4 g/dL (12.0-15.0); Lymphocyte # 1.57 X10^3/ul (0.83-4.51); Lymphocyte % 16.8 % (19-41); Mean Corp Hgb Conc 31.3 g/dL (32-36); Mean Corpuscular Hgb 29.5 pg (27.0-32.0); Mean Corpuscular Volume 94.1 fL (81-99); Mean Platelet Vol. 12.2 fl (6.2-12.0); Monocyte# 0.43 X10^3/uL; Monocyte% 4.6 % (0-10); NRBC Flagged by Analyzer 0 % (0-5); Neutrophil # 7.17 X10^3/uL (2.7-7.7); Neutrophil % 76.5 % (47-70); Platelet Count 167 K/mm3 (150-450); RBC Distribution Width CV 12.8 % (11.6-14.6); Red Blood Count 3.87 M/mm3 (4.2-5.4); White Blood Count 9.4 K/mm3 (4.4-11.0)
[2022-11-19 10:55] LABS: Glucose Challenge Gest 1H 50g 100 mg/dL (70-140)
[2022-11-19 11:17] LABS: Syphilis Antibodies Non-reactive
== END | disposition home or self-care (01) ==
LOC: WOBLAB 09:49
PROVIDERS: Visit Provider Nurse Practitioner Women's Health
DX: Z34.83 Encounter for supervision of other normal pregnancy, third trimester (principal); Z3A.00 Weeks of gestation of pregnancy not specified
CPT/HCPCS: 36415; 82950; 85025; 86780

== ENCOUNTER 2023-02-16 07:21 | Inpatient (IN) | payer SELFPAY, OTHER ==
[2023-02-16] VITALS (39 sets, daily range): BP systolic 103–140; BP diastolic 53–82; PULSE 57–82; RESP 12–18; TEMP 36.2–36.3; O2SAT 96–100; BMI 32.1
--- NOTE | 2023-02-16 | FALS_PTH ---
PATIENT: JUAN F DEVLIN LOC: WP U#:[id number] AGE/SX: 37/F [facility] RE[facility]16[facility]: Dr. Feli Enrique MD : 1985 BED: 1 DIS: 02/17/2023 SPEC #: [id number] RECD: 02/17/23 07:30 STATUS: TY REDeven #: [id number] NILA: 02/16/23 00:[address]: Feli Enrique DEPT: SURGICAL PATHOLOGY RECD BY: Juliana Santo ENTERED: 02/17/23 07:30 SP TYPE: FALL TUBES OTHR DR: No Primary Care Phys Tissues: Fallopian tube Procedures: Surgery Specimen Level II HEADER OPERATION: Tubal ligation PRE-OP DIAGNOSIS: Sterilization TISSUE SUBMITTED: Fallopian tubes MICROSCOPIC DIAGNOSIS Bilateral fallopian tubes, partial salpingectomy: Completely transected segment of bilateral fallopian tubes, no pathologic diagnosis. BECCA:chuy 02/18/2023 MICROSCOPIC DESCRIPTION Slides are reviewed. GROSS DESCRIPTION Received in fixative is one container labeled with the patient's name and designated bilateral fallopian tubes, left string. The specimen consists of two tubular pieces of pink-pearce soft tissue with the left identified with a string. The right fallopian tube measures 1.5 cm in length and 0.6 cm in diameter. The left fallopian tube measures 1.0 cm in length and 0.5 cm in diameter. The entire specimen is submitted in two cassettes as follows: 1 - right fallopian tube, 2 - left fallopian tube. / SJ:rg 02/17/2023 TC:4 CPT: 71950 x2
[2023-02-16 08:07] LABS: Absolute Lymphocyte Count 1.89 X10^3/uL (0.83-4.51); Absolute Neutrophil Count 5.6 X10^3/uL (2.0-7.7); Basophil# 0.03 X10^3/uL; Basophil% 0.4 % (0-1); Eosinophil# 0.07 X10^3/uL; Eosinophils% 0.9 % (0-5); Hematocrit 37.1 % (37-47); Hemoglobin 11.9 g/dL (12.0-15.0); Lymphocyte # 1.89 X10^3/ul (0.83-4.51); Lymphocyte % 23.3 % (19-41); Mean Corp Hgb Conc 32.1 g/dL (32-36); Mean Corpuscular Hgb 29.3 pg (27.0-32.0); Mean Corpuscular Volume 91.4 fL (81-99); Mean Platelet Vol. 13.2 fl (6.2-12.0); Monocyte# 0.49 X10^3/uL; NRBC Flagged by Analyzer 0 % (0-5); Neutrophil # 5.59 X10^3/uL (2.7-7.7); Neutrophil % 68.9 % (47-70); POSITIVE COUNT YES; Platelet Count 132 K/mm3 (150-450); RBC Distribution Width CV 12.8 % (11.6-14.6); RBC Distribution Width SD 42.3 fl (35.1-43.9); Red Blood Count 4.06 M/mm3 (4.2-5.4); White Blood Count 8.1 K/mm3 (4.4-11.0)
[2023-02-16] MEDS: Lactated Ringers 1,000 ML 200 ML IV (08:30)
[2023-02-16] MEDS: Oxytocin 15 Units/NS 250ml 15 UNITS/250 ML IV.SOLN 2 UNITS IV (08:40)
[2023-02-16 08:52] LABS: Syphilis Antibodies Non-reactive
--- NOTE | 2023-02-16 09:54 | PCM.HP.OB ---
HPI - General General Date of Admission: 02/16/23 Date of Service: 02/16/23 Chief Complaint: induction of labor HPI Narrative JUAN F DEVLIN, is a 37-year-old 4 para 3 who presents at 39-4/7 weeks gestation for elective induction of labor. Her has been complicated to date by advanced maternal age. She has a history of 4 uncomplicated vaginal deliveries in the past. She has a history of asthma. Maternal Data Information Final GORAN: 02/19/23 Gestational age: 39 4/7 PFSH PFSH Medical History no medical history Home Medications vits,calcium no.78-iron fumarate-folic acid 29 mg-1 mg tablet (Prenatabs FA) 1 tab PO DAILY 07/28/13 [History Last Taken 04/20/18] Allergy/AdvReac Type Severity Reaction Status Date / Time No Known Allergies Allergy Verified 07/28/13 07:43 Social History Smoking Status: Never smoker History Elective abortions Hx Para 3 Spontaneous abortions Hx # Term Pregnancies Ectopic pregnancies Hx # Pregnancies Multiple births # of living children ROS Constitutional Constitutional: Denies fatigue, fever(s) or malaise Eyes Eyes: Denies change in vision ENT HEENT: Denies dizziness or headache(s) Cardiovascular Cardiovascular: Denies chest pain, dyspnea or lightheadedness Respiratory/Chest Respiratory/Chest: Denies cough or dyspnea Gastrointestinal Gastrointestinal: Denies change in bowel habits Genitourinary Genitourinary: Denies burning urination or genital lesions Integumentary Integumentary: Denies rash Neurologic Neurologic: Denies confusion, dizziness, headache(s), numbness or weakness Vital Signs Vital Signs Vital Signs: 02/16/23 07:23 02/16/23 07:23 02/16/23 07:23 Temperature 97.4 F L Pulse Rate 75 Blood Pressure 121/82 H BP Systolic 121 BP Diastolic 82 Weight Weight: 92.986 kg Body Mass Index (BMI) 32.1 Physical Exam Const alert and no apparent distress General Appearance: cooperative HEENT normocephalic Resp normal respiratory effort Cardio regular rate GI soft to palpation GI Narrative: gravid, nontender, appropriate for gestational age Narrative: Fundus firm, below umbilicus. Extremity no calf tenderness General Extremity: edema Skin no wounds Rashes: No rashes noted Psych activity/motor behavior normal Labs Labs Labs: Blood Type O POSITIVE Antibody Screen NEGATIVE Hct 37.1 % (37-47) Hgb 11.9 g/dL (12.0-15.0) L Syphilis Total Ab Non-reactive VZV IgG Antibody 922 index (Immune >165) Rubella IgG Antibody Reactive (Nonreactive) Hep Bs Antigen Non-Reactive (Nonreactive) Hepatitis C Antibody Non-Reactive (Nonreactive) Chlamydia DNA (MAITE) Negative (Negative-) N.gonorrhoeae DNA (MAITE) Negative (Negative-) HIV 1&2 Antibody Non-Reactive (Nonreactive) Glucose 1 Hr 50 gm 100 mg/dL (70-140) Group B Strep DNA Negative (Negative) Rhogam given: Yes Assessment & Plan (1) 39 weeks gestation of : PLAN: Risk benefits and alternatives to elective induction of labor him discussed with patient, questions were answered to her satisfaction she desires to proceed. Estimated weight is less than 4500 g and pelvis clinically adequate to expect vaginal delivery. May have epidural or routine pain management measures as indicated and as needed. We will proceed with Pitocin and artificial rupture membranes for induction of labor Desires elective sterilization. We will try to accommodate this if acuity of the unit and anesthesia availability allows. (2) Advanced maternal age during in third trimester: (3) Encounter for induction of labor:
[2023-02-16] MEDS: LACTATED RINGERS 500 ML 999 ML IV ×2 (10:43→11:43)
[2023-02-16] MEDS: fentaNYL-bupivacaine (epidural) 100 ML BAG EPIDURAL (11:20)
--- NOTE | 2023-02-16 12:36 | OP.PCM_ITS ---
Assessment & Plan (1) (spontaneous vaginal delivery): Maternal Data Information Final GORAN: 02/19/23 Gestational age: 39 5/7 Vaginal Delivery Maternal Presentation Maternal Presentation: Elective Induction Type of Induction: Pitocin Operative Information Date of Procedure: 02/16/23 Pre-Operative Diagnosis: labor Post-Operative Diagnosis: same Surgery / Procedure Performed: Spontaneous Vaginal Delivery Type of Anesthesia: Epidural Special Medications: none Drain: - (none) Estimated Blood Loss: 200 Time of Delivery: 12:21 Findings Description of Procedure: A vigorous [female] infant was delivered [KAN] over an intact perineum. The remainder the infant was delivered with maternal pushing and gentle traction only in less than 15 seconds. The Pitocin infusion was initiated for active management of the third stage. The cord was clamped and cut after cord puls ations ceased. The was attended to by the waiting nursing staff. The placenta was delivered spontaneously and intact. The cervix and vagina were intact. Needle counts were correct. A vaginal sweep was completed by me. No sponges were used the package was not opened. Epidural left in place and running. Patient consented for tubal sterilization. Risk benefits and alternatives to tubal sterilization via either partial salpingectomy or complete bilateral salpingectomy were reviewed, questions were answered to her satisfaction she desires to proceed. She understands this is irreversible, permanent, risk of failure and regret. Presentation: KAN Amniotic Membrane Rupture Type: Spontaneous Amniotic Fluid Description: Clear Placental Delivery Description: Spontaneous Placenta Disposition: [facility] Cord Vessel Description: 3 Vessels Cord Entanglement: None Infant A Gender: Female (Brock) (1 minute): 8 (5 minute): 9 Delayed Cord Clamping: Yes Post Vaginal Delivery Medications Given After Delivery: IV Pitocin Episiotomy Description: None Laceration: None Complication Complications: None
[2023-02-16] MEDS: Oxytocin 15 Units/NS 250ml 15 UNITS/250 ML IV.SOLN 83 UNITS IV ×2 (13:15→14:20)
[2023-02-16] MEDS: Methylergonovine 0.2 MG/ML Ampul IM (14:05)
--- NOTE | 2023-02-16 14:13 | OP.PCM_ITS ---
Problems Associated Problem List Diagnoses (1) Sterilization: Report of Operation Date of Procedure: 02/16/23 Pre-Operative Diagnosis: sterilization request Post-Operative Diagnosis: same Surgery/Procedure Performed:: bilateral partial salpingectomy Description of Surgical Findings:: normal ovaries and tubes Surgeon: Feli Enrique buckle attaching machine operator: None Type of Anesthesia: Epidural Anesthesiologist: Melida Oswald Special Medications: none Specimen's removed: bilateral fallopian tube fragments Drains: mccoy Estimated Blood Loss (mL): 10 Fluids Replaced: 300 Description of Procedure: The patient was to the operating room where she was prepped and draped in dorsal supine position. Scalpel was used to make a 3 centimeter incision under the umbilicus. This was carried through to underlying fascia with the scalpel. The fascia was grasped and tented up with Allis clamps. The fascia was incised with the Bovie and extended laterally with De Paz scissors. The peritoneum was tented up with Maddy clamps and entered sharply. Intraperitoneal entry was confirmed. The fascia was extended a little more laterally. The patient was tilted to the left and the right fallopian tube was identified and followed out to the fimbriated end. It was technically difficult to visualize the whole tube so decision was made to proceed with partial salpingectomy. Knuckle of tube was tented up and plain gut suture was used to tie off the knuckle of tube on both sides. A free tie of the same suture was then used to secure underneath the original ties. The knuckle of tube was removed with the Metzenbaum scissors and hemostasis was noted. The same procedure was performed on the contralateral side and excellent hemostasis was noted. The fascia was then closed with #1 Vicryl suture in a running standard fashion. The skin was closed with Monocryl in a subcuticular fashion. Hemostasis was noted. Skin glue was placed over the incision. Noted that the uterus was somewhat boggy before and after the procedure and evacuation of clots was performed. Dose of Methergine was given x1. Uterus was then firm. EBL total since delivery was 500 cc from the delivery but only 10 cc for the actual tubal. Sponge and needle counts were correct the patient was taken to her room to recovery in a stable condition. Grafts/Implants Used: none Procedure Start Time: 13:39 Procedure Stop Time: 14:00 Complications none Admit VTE Documentation VTE Present on Admission: No VTE Mechan Device Prophylaxis: SCD's VTE Pharm Prophylaxis ordered?: No Reason prophylaxis not ordered:: Procedure Not Indicated
[2023-02-16] MEDS: Cefazolin 2 GM in 0.9% Normal Saline (100mL Bag) 100 ML IV (15:05)
[2023-02-16 15:25] LABS: Pathology Specimen OB SEE PATHOLOGY REPORT
[2023-02-16] MEDS: Acetaminophen 500 MG Tablet 1000 MG PO (15:58)
[2023-02-16] MEDS: Ibuprofen 600 MG Tablet PO (15:59)
[2023-02-16] MEDS: SimETHICONE 80 MG Chewable Tablet PO ×2 (18:01→23:58)
[2023-02-17] MEDS: Ibuprofen 600 MG Tablet PO ×2 (01:39→10:30)
[2023-02-17] MEDS: Acetaminophen 500 MG Tablet 1000 MG PO ×2 (01:39→10:31)
[2023-02-17 03:32] VITALS: BP 126/77; PULSE 59; RESP 18
[2023-02-17 05:41] LABS: Absolute Lymphocyte Count 2.07 X10^3/uL (0.83-4.51); Absolute Neutrophil Count 8.8 X10^3/uL (2.0-7.7); Basophil# 0.04 X10^3/uL; Basophil% 0.3 % (0-1); Eosinophil# 0.06 X10^3/uL; Eosinophils% 0.5 % (0-5); Hematocrit 30.8 % (37-47); Hemoglobin 10.1 g/dL (12.0-15.0); Lymphocyte # 2.07 X10^3/ul (0.83-4.51); Lymphocyte % 17.8 % (19-41); Mean Corp Hgb Conc 32.8 g/dL (32-36); Mean Corpuscular Volume 91.4 fL (81-99); Mean Platelet Vol. 12.7 fl (6.2-12.0); Monocyte# 0.59 X10^3/uL; Monocyte% 5.1 % (0-10); NRBC Flagged by Analyzer 0 % (0-5); Neutrophil # 8.83 X10^3/uL (2.7-7.7); Neutrophil % 75.7 % (47-70); Platelet Count 129 K/mm3 (150-450); RBC Distribution Width SD 43.3 fl (35.1-43.9); Red Blood Count 3.37 M/mm3 (4.2-5.4); White Blood Count 11.7 K/mm3 (4.4-11.0)
[2023-02-17 07:40] VITALS: BP 114/63; PULSE 64; RESP 18; TEMP 36.6; O2SAT 98
[2023-02-17] MEDS: SimETHICONE 80 MG Chewable Tablet PO (10:31)
[2023-02-17] MEDS: Senna/Docusate Sodium 1 Tablet PO (10:31)
--- NOTE | 2023-02-17 13:23 | PCM.DC.SUM ---
Providers Date of Admission: 02/16/23 Date of Discharge: 02/17/23 Primary Care Physician: Dasha Primary Care Phys Reason For Visit: SCHEDULED INDUCTION Diagnosis Discharge Diagnosis (1) Sterilization: Status: Acute Code(s): Z30.2 - Encounter for sterilization Medications at Discharge Home Medications vits,calcium no.78-iron fumarate-folic acid 29 mg-1 mg tablet (Prenatabs FA) 1 tab PO DAILY 07/28/13 acetaminophen 500 mg tablet 1,000 mg (2 x 500 mg) PO Q6H PRN PRN Pain 1-10 Or Fever #0 tabs 02/17/23 ibuprofen 600 mg tablet 600 mg PO Q6H PRN PRN Pain Score 1-3 #0 tabs 02/17/23 Hospital Course Summary of Care Provided Minutes Spent on Discharge: 15 Weight / BMI Weight Weight: 205 lb Body Mass Index (BMI) 32.1 ABG / Lab / Microbiology Data 02/17/23 05:30 Laboratory: Laboratory Results - last 24 hr 02/17/23 05:30: WBC 11.7 H, RBC 3.37 L, Hgb 10.1 L, Hct 30.8 L, MCV 91.4, MCH 30.0, MCHC 32.8, RDW Std Deviation 43.3, RDW Coeff of Stoney 13.0, Plt Count 129 L, MPV 12.7 H, Immature Gran % (Auto) 0.600, Neut % (Auto) 75.7 H, Lymph % (Auto) 17.8 L, Norman % (Auto) 5.1, Eos % (Auto) 0.5, Baso % (Auto) 0.3, Absolute Neuts (auto) 8.8 H, Absolute Lymphs (auto) 2.07, Nucleated RBC % 0 Meaningful Use Info Meaningful Use Diagnoses (Choose all that apply): None applicable Discharge Plan Admission Admit Date/Time: 02/16/23 07:21 Primary Reason for Your Visit: Vaginal Delivery Attending Provider: Feli Enrique Primary Care Provider: Care Physician,No Primary Discharge Orders/Prescriptions Prescriptions: New acetaminophen 500 mg Tablet 1,000 mg PO Q6H PRN PRN (Reason: Pain 1-10 Or Fever) Qty: 0 0RF ibuprofen 600 mg Tablet 600 mg PO Q6H PRN PRN (Reason: Pain Score 1-3) Qty: 0 0RF Continued vit,[id number] [Prenatabs FA] 1 TABLET tablet 1 tab PO DAILY Referrals / Follow Up: Feli Enrique MD [Med Staff - Active Staff] - (2 weeks and 6 weeks PP) Care Physician,No Primary [Primary Care Provider] - Disposition Disposition (needs filled in before D/C Order can be placed): Home, Self Care
--- NOTE | 2023-02-17 13:25 | PCM.PN.OB ---
Subjective Subjective Doing well per patient and nursing staff. Ambulating and taking PO without difficulty. Voiding and passing flatus. Pain controlled. , services for assistance. Denies headache, visual changes, chest pain, shortness of breath, leg pain or increased bleeding. Lochia normal. Objective Data Objective Data Vital Signs: Vital Signs Temp Pulse Resp BP Pulse Ox O2 Del Method 97.8 F 64 18 114/63 98 Room Air 02/17/23 07:40 02/17/23 07:40 02/17/23 07:40 02/17/23 07:40 02/17/23 07:40 02/17/23 07:40 Oxygen Delivery Method Room Air Weight: 205 lb Body Mass Index (BMI) 32.1 Intake & Output: Intake and Output for Last 24 Hours 02/15/23 02/16/23 02/17/23 23:59 23:59 23:59 Intake Total 2623.38 / 2623.38 Output Total 1400 / 1400 Balance 1223.38 / 1223.38 Lab / Micro Data 02/17/23 05:30 Labs: Laboratory Results - last 24 hr 02/17/23 05:30: WBC 11.7 H, RBC 3.37 L, Hgb 10.1 L, Hct 30.8 L, MCV 91.4, MCH 30.0, MCHC 32.8, RDW Std Deviation 43.3, RDW Coeff of Stoney 13.0, Plt Count 129 L, MPV 12.7 H, Immature Gran % (Auto) 0.600, Neut % (Auto) 75.7 H, Lymph % (Auto) 17.8 L, [place] % (Auto) 5.1, Eos % (Auto) 0.5, Baso % (Auto) 0.3, Absolute Neuts (auto) 8.8 H, Absolute Lymphs (auto) 2.07, Nucleated RBC % 0 ROS Constitutional Constitutional: Reports systems reviewed and no addt'l complaints, except as documented; Denies headache(s) Eyes Eyes: Denies acute decrease in peripheral vision, blurry vision or change in vision ENT HEENT: Reports systems reviewed and no addt'l complaints, except as documented Cardiovascular Cardiovascular: Denies chest pain or dizziness Respiratory/Chest Respiratory/Chest: Denies cough, dyspnea, dyspnea on exertion, shortness of breath at rest or shortness of breath with exertion Gastrointestinal Gastrointestinal: Denies abdominal pain, diarrhea, nausea or vomiting Genitourinary Genitourinary: Denies abdominal discomfort Musculoskeletal Musculoskeletal: Denies limited range of motion Integumentary Integumentary: Reports systems reviewed and no addt'l complaints, except as documented Neurologic Neurologic: Reports systems reviewed and no addt'l complaints, except as documented Psychiatric Psychiatric: Reports systems reviewed and no addt'l complaints, except as documented Endocrine Endocrinology: Reports systems reviewed and no addt'l complaints, except as documented Hematologic/Lymphatic Hematologic/Lymphatic: Reports systems reviewed and no addt'l complaints, except as documented Allergic/Immunologic Allergic/Immunologic: Reports systems reviewed and no addt'l complaints, except as documented Physical Exam Const alert and oriented x3 General Appearance: cooperative Orientation / Consciousness: awake, oriented to person, oriented to place and oriented to time Exam Limitations: no limitations HEENT normocephalic Head and Scalp: normal to inspection, normocephalic and atraumatic Face and Sinus: normal facial exam Eyes General Eye: normal appearance of both eyes Neck full ROM Chest Chest: symmetrical chest wall rise Resp normal respiratory effort and normal air movement Auscultation: clear to auscultation bilaterally Cardio regular rate, regular rhythm, S1 normal heart sound, S2 normal heart sound, no murmurs, no rub, no gallops and no clicks GI normal to inspection, nondistended, normoactive bowel sounds and non-tender appearance of the vagina normal Bladder / Kidney Exam: no CVA tenderness Back/Spine normal ROM Extremity normal to inspection and full ROM Skin no rashes or lesions noted Neuro oriented x3 and moves all extremities Sensorium / Orientation: awake, alert and oriented to person Assessment & Plan (1) (spontaneous vaginal delivery): PLAN: Plan 1) PPD #1 2) Vitals stable 3) D/C today. Follow up in 2 week and 6 week PP
[2023-02-17 13:34] VITALS: BP 125/68; PULSE 67; RESP 18; TEMP 36.4
== END 2023-02-17 14:15 | disposition home or self-care (01) | DRG 798 ==
PROVIDERS: Admitting Provider Obstetrics & Gynecology; Visit Provider Obstetrics & Gynecology
DX: O99.52 Diseases of the respiratory system complicating childbirth (principal); Z37.0 Single live birth; J45.909 Unspecified asthma, uncomplicated; Z30.2 Encounter for sterilization; Z3A.39 39 weeks gestation of pregnancy
CPT/HCPCS: 59025; 59050; 85025; 86780; 86850; 86900; 86901; 88302; 99221; J7120; G0378; J2405